=== PATIENT | female | born 1965 | race Asian ===

== ENCOUNTER 2017-01-21 10:13 | Emergency (ER) | payer MEDICAID ==
[~2017-01-21] VITALS: Ht 157.5 cm; Wt 77.6 kg
[2017-01-21 12:07] VITALS: BP 157/108
== END 2017-01-21 12:32 | disposition home or self-care (01) ==
LOC: ED 10:13
DX: J45.901 Unspecified asthma with (acute) exacerbation (principal); I10 Essential (primary) hypertension
CPT/HCPCS: J7512; J7613; J7644; Q0092

== ENCOUNTER 2017-02-12 08:28 | Emergency (ER) | payer MEDICAID ==
[2017-02-12 11:12] VITALS: BP 116/87
== END 2017-02-12 11:12 | disposition other institution (70) ==
LOC: ED 08:28
DX: S16.1XXA Strain of muscle, fascia and tendon at neck level, initial encounter (principal); F10.129 Alcohol abuse with intoxication, unspecified; J45.909 Unspecified asthma, uncomplicated; S09.90XA Unspecified injury of head, initial encounter; Z02.89 Encounter for other administrative examinations; Z88.2 Allergy status to sulfonamides; V29.9XXA Motorcycle rider (driver) (passenger) injured in unspecified traffic accident, initial encounter; W22.10XA Striking against or struck by unspecified automobile airbag, initial encounter; Y93.89 Activity, other specified; Y99.8 Other external cause status; Y92.89 Other specified places as the place of occurrence of the external cause
CPT/HCPCS: 82962

== ENCOUNTER 2017-02-12 08:28 | Emergency (ER) | payer OTHER | END 2017-02-12 11:12 | disposition other institution (70) | LOC: ED 08:28 | DX: Z02.89 Encounter for other administrative examinations (principal); S09.90XA Unspecified injury of head, initial encounter; S16.1XXA Strain of muscle, fascia and tendon at neck level, initial encounter; F10.129 Alcohol abuse with intoxication, unspecified; J45.909 Unspecified asthma, uncomplicated; Z88.2 Allergy status to sulfonamides; V49.9XXA Car occupant (driver) (passenger) injured in unspecified traffic accident, initial encounter; W22.10XA Striking against or struck by unspecified automobile airbag, initial encounter; Y93.89 Activity, other specified; Y99.8 Other external cause status; Y92.89 Other specified places as the place of occurrence of the external cause ==

== ENCOUNTER 2017-03-31 18:12 | Emergency (ER) | payer MEDICAID ==
[2017-03-31 19:36] VITALS: BP 157/110
== END 2017-03-31 19:36 | disposition home or self-care (01) ==
LOC: ED 18:12
DX: F41.1 Generalized anxiety disorder (principal); I10 Essential (primary) hypertension; G89.29 Other chronic pain; Z76.0 Encounter for issue of repeat prescription; J45.909 Unspecified asthma, uncomplicated; M79.631 Pain in right forearm; Z86.59 Personal history of other mental and behavioral disorders